=== PATIENT | female | born 1950 | race Caucasian/White ===

== ENCOUNTER 2018-01-11 07:48 | Day surgery (SDC) | payer OTHER ==
[2018-01-10 15:18] VITALS: BMI 22.1
[2018-01-11 10:00] VITALS: TEMP 97.3
[2018-01-11 11:11] VITALS: BP 125/78; PULSE 72
--- NOTE | 2018-01-12 11:31 | PATH ---
Surgical Pathology Report Patient Name: JAUN PRAJAPATI [facility]. Rec. #: [id number] /Age/Gender: 1950 (Age: 67) / F Account: [id number] Location: [facility]-ENDOSCOPY Taken: 01/11/2018 Received: 01/11/2018 Reported: 01/12/2018 Physicians: Bora Ng M.D. Specimen(s) Received A: BX PROXIMAL TRANSVERSE COLON POLYP B: SIGMOID POLYP C: RECTAL POLYP Clinical History Adenoma surveillance Colon polyps, diverticulosis Final Diagnosis A. COLON, PROXIMAL TRANSVERSE, BIOPSY: TUBULAR ADENOMA. B. COLON, SIGMOID, POLYPECTOMY: TUBULAR ADENOMA. SMALLER PORTION OF TISSUE SHOWS COLONIC MUCOSA WITH THERMAL ARTIFACT AND NO PATHOLOGIC CHANGES. C. COLON, RECTUM, BIOPSY: HYPERPLASTIC POLYP. Comment: Recommend correlation with clinical findings and follow up as clinically indicated. Electronically Signed Adolfo Marcus M.D. Gross Description A. Received in formalin, labeled "biopsy proximal transverse colon polyp" are 4 fuller, irregular portions of soft tissue measuring 0.1-0.2 cm. in greatest dimension. The specimens are submitted in toto in one cassette. B. Received in formalin labelled "sigmoid polyp" are two pieces of fuller tissue one which measures 0.3 cm in greatest dimension and the other which measures 1.0 cm in greatest dimension. No stalk is identified. The larger piece is sectioned and the specimen is totally submitted in one cassette. C. Received in formalin, labeled "rectal polyp" is a fuller, irregular portion of soft tissue measuring 0.4 cm. in greatest dimension. The specimen is sectioned and submitted in toto in one cassette. [facility]/01/11/2018 [facility]/01/11/2018
== END 2018-01-11 11:11 | disposition home or self-care (01) ==
LOC: JASU-ENDO 07:48
PROVIDERS: ATTEND Internal Medicine Gastroenterology
PROC: 0DBN8ZX Excision of Sigmoid Colon, Via Natural or Artificial Opening Endoscopic, Diagnostic (ICD-10-PCS; 2018-01-11)
PROC: 0DBL8ZX Excision of Transverse Colon, Via Natural or Artificial Opening Endoscopic, Diagnostic (ICD-10-PCS; 2018-01-11)
PROC: 0DBP8ZX Excision of Rectum, Via Natural or Artificial Opening Endoscopic, Diagnostic (ICD-10-PCS; principal; 2018-01-11 08:45)
DX: Z86.010 Personal history of colon polyps (principal); D12.5 Benign neoplasm of sigmoid colon; D12.3 Benign neoplasm of transverse colon; K62.1 Rectal polyp; K64.8 Other hemorrhoids; K57.30 Diverticulosis of large intestine without perforation or abscess without bleeding
CPT/HCPCS: 88305-TC